=== PATIENT | male | born 1990 | race Caucasian/White ===

== ENCOUNTER 2018-08-28 14:56 | Outpatient (CLI) | payer OTHER ==
--- NOTE | 2018-08-28 15:27 | RAD ---
CERVICAL SPINE THREE VIEWS: 08/28/2018 HISTORY: Neck pain. The patient states no specific injury. COMPARISON: None available. FINDINGS: The C1 to the cervicothoracic junction is seen on the lateral view. The vertebral body heights and i ntervertebral disk spaces are within normal limits. There is straightening of the normal cervical lo rdotic curvature. No fracture or subluxation is seen involving the cervical spine. Vertebral body heights and intervertebral disk spaces are within normal limits. Prevertebral soft ti ssues are within normal limits. IMPRESSION: Normal appearance of the cervical spine, aside from straightening of the normal cervical lordotic cur vature. No fracture or subluxation is identified. POS: [facility]
--- NOTE | 2018-08-28 15:35 | RAD ---
LUMBAR SPINE TWO VIEWS: 08/28/2018 HISTORY: Left-sided low back pain and left-sided sciatica pain. COMPARISON: None available. FINDINGS: There are five kek-ulz-asdgwzl lumbar type vertebral bodies. Vertebral body height and intervertebra l disk spaces are within normal limits. Mild osteophytes are seen anteriorly, at the L2-L3 level. N o fracture or subluxation is seen. IMPRESSION: Minimal degenerative changes in the lumbar spine, but no fracture or subluxation is seen. Given the patient's radicular symptoms, MRI lumbar spine may be helpful for further evaluation. POS: [facility]
== END 2018-08-28 14:57 | disposition home or self-care (01) ==
LOC: BICRAD 14:56
PROVIDERS: ATTEND Family Medicine
DX: M54.42 Lumbago with sciatica, left side (principal); M54.2 Cervicalgia; M47.812 Spondylosis without myelopathy or radiculopathy, cervical region
CPT/HCPCS: 36415; 72040; 72100; 80053; 80061; 83036; 84439; 84443; 85025

== ENCOUNTER 2022-03-04 07:32 | Outpatient (CLI) | payer OTHER | END 2022-03-04 07:33 | disposition home or self-care (01) | LOC: BICULT 07:32 | PROVIDERS: ATTEND Family Medicine | DX: R94.5 Abnormal results of liver function studies (principal); R16.0 Hepatomegaly, not elsewhere classified; K76.0 Fatty (change of) liver, not elsewhere classified | CPT/HCPCS: 76705 ==

== ENCOUNTER 2023-04-30 17:00 | Outpatient (CLI) | payer OTHER | END 2023-04-30 17:01 | disposition home or self-care (01) | LOC: SLEEPLAB 17:00 | PROVIDERS: ATTEND Preventive Medicine Preventive Medicine/Occupational Environmental Medicine | DX: G47.33 Obstructive sleep apnea (adult) (pediatric) (principal); G47.00 Insomnia, unspecified; R35.1 Nocturia; R06.83 Snoring; E66.9 Obesity, unspecified; R53.83 Other fatigue; R09.89 Other specified symptoms and signs involving the circulatory and respiratory systems; Z68.31 Body mass index [BMI] 31.0-31.9, adult | CPT/HCPCS: 95800 ==

== ENCOUNTER 2023-08-06 16:00 | Outpatient (CLI) | payer OTHER | END 2023-08-06 16:01 | disposition home or self-care (01) | LOC: SLEEPLAB 16:00 | PROVIDERS: ATTEND Nurse Practitioner Family | DX: G47.33 Obstructive sleep apnea (adult) (pediatric) (principal); R53.83 Other fatigue; E66.9 Obesity, unspecified; R06.83 Snoring; G47.00 Insomnia, unspecified; R35.1 Nocturia; I10 Essential (primary) hypertension; K21.9 Gastro-esophageal reflux disease without esophagitis; Z68.31 Body mass index [BMI] 31.0-31.9, adult | CPT/HCPCS: 95810 ==